=== PATIENT | female | born 1960 | race Hispanic/Latino ===

== ENCOUNTER → 2021-01-11 | Outpatient (CLI) | payer BC | END | disposition home or self-care (01) | LOC: RAH 13:07 | PROVIDERS: ATTEND Nurse Practitioner Adult Health | DX: Z12.31 Encounter for screening mammogram for malignant neoplasm of breast (principal) | CPT/HCPCS: 77067 ==

== ENCOUNTER → 2022-07-22 | Outpatient (CLI) | payer BC | END | disposition home or self-care (01) | LOC: RAH 10:31 | PROVIDERS: ATTEND Nurse Practitioner Adult Health | DX: Z12.31 Encounter for screening mammogram for malignant neoplasm of breast (principal) | CPT/HCPCS: 77067 ==

== ENCOUNTER → 2022-09-20 | Outpatient (CLI) | payer OTHER | END | disposition home or self-care (01) | LOC: OIH 13:49 | PROVIDERS: ATTEND Nurse Practitioner Adult Health | DX: Z13.6 Encounter for screening for cardiovascular disorders (principal) | CPT/HCPCS: 75571 ==

== ENCOUNTER → 2022-12-06 | Outpatient (CLI) | payer BC | END | disposition home or self-care (01) | LOC: RAH 09:29 | PROVIDERS: ATTEND Internal Medicine | DX: K44.9 Diaphragmatic hernia without obstruction or gangrene (principal); K22.2 Esophageal obstruction; K29.70 Gastritis, unspecified, without bleeding | CPT/HCPCS: 74240 ==

== ENCOUNTER → 2023-02-16 | Outpatient (CLI) | payer BC ==
[2023-02-16 13:41] LABS: CREATININE 0.7 mg/dL (0.5-1.5)
== END | disposition home or self-care (01) ==
LOC: LAB 12:48
PROVIDERS: ATTEND Surgery
DX: K44.9 Diaphragmatic hernia without obstruction or gangrene (principal)
CPT/HCPCS: 36415; 82565; 84520

== ENCOUNTER → 2023-02-24 | Outpatient (CLI) | payer BC ==
[~2023-02-24] MED LIST: IOHEXOL 350 MG/ML 100ML INFUS..BTL IV ONE
== END | disposition home or self-care (01) ==
LOC: RAH 10:41
PROVIDERS: ATTEND Surgery
DX: K44.9 Diaphragmatic hernia without obstruction or gangrene (principal); M47.815 Spondylosis without myelopathy or radiculopathy, thoracolumbar region; K76.89 Other specified diseases of liver; K42.9 Umbilical hernia without obstruction or gangrene
CPT/HCPCS: 74177; Q9967

== ENCOUNTER 2023-08-31 08:06 | Observation (INO) | payer BC ==
[2023-08-30 10:33] VITALS: BP 121/71; PULSE 54; RESP 18
[2023-08-30 10:38] LABS: BASOPHILS # (AUTO) 0.02 K/uL (0.00-0.20); BASOPHILS % (AUTO) 0.4 % (0.0-5.0); EOSINOPHILS # (AUTO) 0.15 K/uL (0.00-0.70); HEMATOCRIT 43.8 % (36-48); IMMATURE GRANULOCYTE ABSOLUTE 0.01 K/uL (0-1); LYMPHOCYTES # (AUTO) 1.2 K/uL (1.0-4.8); MEAN CORPUSCULAR HGB CONC 33.3 g/dL (32.0-36.0); MEAN CORPUSCULAR VOLUME 87.1 fL (79-99); MONOCYTES # (AUTO) 0.4 K/uL (0.1-1.0); MONOCYTES % (AUTO) 7.9 % (3.0-13.0); NEUTROPHILS # (AUTO) 3.2 K/uL (1.8-7.7); NEUTROPHILS % (AUTO) 64.5 % (40.0-77.0); PLATELET COUNT (AUTO) 177 K/uL (130-400); RED BLOOD CELL COUNT(AUTO) 5.03 MIL/uL (4.00-5.50); RED CELL DISTRIBUTION WIDTH 13.2 % (11.0-15.5)
[2023-08-30 10:51] LABS: CREATININE 0.8 mg/dL (0.5-1.0)
[2023-08-31] VITALS (26 sets, daily range): BP systolic 94–161; BP diastolic 52–92; PULSE 38–69; RESP 10–19
[~2023-08-31] VITALS: Ht 149.9 cm; Wt 68.0 kg
[2023-08-31] MEDS: CEFAZOLIN SODIUM 2 GM VIAL ONE (08:00)
[~2023-08-31 08:06] MED LIST changes: +ATOR20TA65 PO; +FLUT16H EN; -IOHEXOL 350 MG/ML 100ML INFUS..BTL IV ONE; +LATA2.5D14 OU; +METF-910 PO; +METO-408 PO; +MONT-39 PO; +OMEP40CA21 PO
[2023-08-31] MEDS ORDERED: METF-444 PO (08:35)
[2023-08-31] MEDS: 0.9%NACL 1000ML 1,000 ML IV ONE (08:36)
[2023-08-31] MEDS: FAMOTIDINE 20MG VIAL IV ONE (10:05)
[2023-08-31] MEDS: MORPHINE 4 MG SYG ONE (10:05)
[2023-08-31] MEDS: ACETAMINOPHEN 1,000 MG/100 ML VIAL IV ONE (10:05)
[2023-08-31] MEDS ORDERED: LIDOCAINE HCL MPF 1% 5ML VIAL ONE (10:06)
[2023-08-31] MEDS ORDERED: SUCCINYLCHOLINE CHLORIDE 20 MG/ML 10 ML VIAL ONE (10:07)
[2023-08-31] MEDS ORDERED: ROCURONIUM BROMIDE 10MG/1ML 5ML VL ONE (10:07)
[2023-08-31] MEDS ORDERED: MIDAZOLAM HCL 1 MG/ML 2ML VIAL ONE (10:07)
[2023-08-31] MEDS ORDERED: FENTANYL CITRATE PF 50 MCG/1 ML 2ML VIAL ONE (10:07)
[2023-08-31] MEDS ORDERED: PROPOFOL 10 MG/ML 20ML VIAL IV ONE (10:07)
[2023-08-31] MEDS ORDERED: DEXAMETHASONE SOD PHOSPHATE 4 MG/ML 1ML VIAL ONE (10:21)
[2023-08-31] MEDS ORDERED: ONDANSETRON 4MG INJ ONE (10:21)
[2023-08-31] MEDS ORDERED: BUPIVACAINE/PF 0.25% 30ML VIAL IJ ONE (10:23)
[2023-08-31] MEDS: CEFAZOLIN SODIUM 2 GM VIAL IVPB ONE (10:25)
[2023-08-31] MEDS ORDERED: GLYCOPYRROLATE 0.2 MG/ML 5 ML VIAL ONE (11:00)
[2023-08-31] MEDS ORDERED: NEOSTIGMINE METHYLSULFATE 1MG/ML IV ONE (11:00)
[2023-08-31] MEDS: FENTANYL CITRATE PF 50 MCG/1 ML 2ML VIAL ONE (12:20)
[2023-08-31] MEDS ORDERED: HYDROMORPHONE 1 MG INJ IVP PRN (13:00)
[2023-08-31] MEDS ORDERED: PROCHLORPERAZINE 10MG/2ML INJ IV PRN (13:00)
[2023-08-31] MEDS ORDERED: KETOROLAC 30MG VIAL (30MG/ML) IV PRN (13:00)
[2023-08-31] MEDS: LACTATED RINGERS 1000ML 1,000 ML IV SCH (13:00)
[2023-08-31] MEDS ORDERED: HYDROCODONE/ACETAMINOPHEN 7.5/325 MG 15 ML UDCUP PO PRN (13:00)
[2023-08-31] MEDS: FAMOTIDINE 20MG VIAL IV SCH (20:36)
[2023-08-31] MEDS: ONDANSETRON 4MG INJ IVP PRN (20:38)
[2023-08-31] MEDS: KETOROLAC 15MG/ML VIAL (15MG/ML) ONE (23:24)
[2023-08-31] MEDS ORDERED: KETOROLAC 15MG/ML VIAL (15MG/ML) IV PRN (23:30)
[2023-09-01] VITALS: BP 146/73; PULSE 47; RESP 18
[2023-09-01 04:00] VITALS: BP 150/70; PULSE 50; RESP 16
[2023-09-01 07:57] VITALS: BP 147/75; PULSE 47; RESP 18
[2023-09-01] MEDS: ENOXAPARIN SODIUM 40 MG/0.4 ML SYRINGE SQ SCH (08:33)
[2023-09-01 12:00] VITALS: BP 150/68; PULSE 47; RESP 16
== END 2023-09-01 15:15 | disposition still patient (30) ==
LOC: DAH 08:06 → INTOOBSV 08:07 → DAHIP 08:07 → 3DH 14:10
PROVIDERS: ADMIT Surgery; ATTEND Surgery
DX: K44.9 Diaphragmatic hernia without obstruction or gangrene (principal); K42.9 Umbilical hernia without obstruction or gangrene; K43.9 Ventral hernia without obstruction or gangrene; K21.9 Gastro-esophageal reflux disease without esophagitis; I10 Essential (primary) hypertension; E78.5 Hyperlipidemia, unspecified; Z90.710 Acquired absence of both cervix and uterus; Z79.899 Other long term (current) drug therapy
CPT/HCPCS: 43280; 49594; S2900; 36415; 43235; 80048; 82948; 85025; 86850; 86900; 86901; 93005; 96372; 96374; 96375; 96376; G0378; J0330; J1100; J1650; J1885; J2250; J2270; J2405; J2704; J2710; J3010; J3490; J7030; A4213; A4215; A4221; A4222; A4223; A4600; A4663; A4930; A6260; C1781; G0168; J0665; J0690

== ENCOUNTER → 2024-01-17 | Outpatient (CLI) | payer BC ==
[~2024-01-17] MED LIST changes: +METF-444 PO; -METF-910 PO; -OMEP40CA21 PO
--- NOTE | 2024-01-17 13:37 | HMCIMG ---
SCREENING MAMMOGRAM REASON: Annual Exam COMPARISON: 07/22/2022 TECHNIQUE: CC and MLO views of the bilateral breasts were performed.CAD was performed as well. FINDINGS: Parenchymal density: There are scattered areas of fibroglandular density. There are no focal mass lesions. There are no pathologic appearing calcifications. There is no evidence of architectural distortion or skin thickening. IMPRESSION: Normal screening mammogram The patient was entered into a reminder system with a target due date for their next mammogram. BI-RADS CATEGORY 1: NEGATIVE Recommend monthly self breast exam as well as annual clinical examination. A negative x-ray should not delay biopsy if a dominant or clinically suspicious mass is present, since 8-10% of cancers are not identified by mammography. Dense breasts particularly, may obscure an underlying neoplasm. Some of these may be detected clinically and therefore, clinical examination is an essential part of breast evaluation.
== END | disposition home or self-care (01) ==
LOC: RAH 12:53
PROVIDERS: ATTEND Nurse Practitioner Adult Health
DX: Z12.31 Encounter for screening mammogram for malignant neoplasm of breast (principal); R92.323 Mammographic fibroglandular density, bilateral breasts
CPT/HCPCS: 77067